=== PATIENT | female | born 1970 | race Caucasian/White ===

== ENCOUNTER → 2016-12-19 08:42 | Outpatient (CLI) | payer MEDICAID | LOC: D.MAMMO 08:42 | DX: N63 Unspecified lump in breast (principal) ==

== ENCOUNTER 2017-03-11 17:49 | Emergency (ER) | payer MEDICAID | END 2017-03-11 18:53 | disposition home or self-care (01) | LOC: D.ER 17:49 | DX: K02.9 Dental caries, unspecified (principal); K04.7 Periapical abscess without sinus; E11.9 Type 2 diabetes mellitus without complications; Z79.4 Long term (current) use of insulin; F17.200 Nicotine dependence, unspecified, uncomplicated ==

== ENCOUNTER 2017-06-18 19:04 | Emergency (ER) | payer MEDICAID | END 2017-06-18 21:10 | disposition home or self-care (01) | LOC: D.ER 19:04 | DX: H00.015 Hordeolum externum left lower eyelid (principal); K04.7 Periapical abscess without sinus; E11.9 Type 2 diabetes mellitus without complications; Z79.4 Long term (current) use of insulin; F17.200 Nicotine dependence, unspecified, uncomplicated ==

== ENCOUNTER 2018-01-29 09:17 | Emergency (ER) | payer SELFPAY ==
[~2018-01-29] VITALS: Ht 167.6 cm; Wt 52.3 kg
[2018-01-29 09:34] VITALS: Ht 167.6 cm; Wt 52.3 kg
[2018-01-29] MEDS ORDERED: ADVAIR HFA 230-12 GM INH (09:39)
[2018-01-29] MEDS ORDERED: NOVOLOG100 UNIT/1 SQ (09:39)
[2018-01-29] MEDS ORDERED: VENTOLIN HFA18 GM INH (09:39)
[2018-01-29] MEDS ORDERED: TOUJEO SOL300 UNIT/1 SC (09:39)
[2018-01-29] MEDS ORDERED: SINGULAIR10 MG PO (09:40)
[2018-01-29] MEDS ORDERED: PREVACID30 MG PO (09:41)
[2018-01-29] MEDS ORDERED: DIFLUCAN150 MG PO (13:23)
[2018-01-29] MEDS ORDERED: CLEOCIN HCL300 MG PO (13:23)
[2018-01-29 14:15] VITALS: BP 100/74
== END 2018-01-29 14:15 | disposition home or self-care (01) ==
LOC: D.ER 09:17
DX: L02.411 Cutaneous abscess of right axilla (principal); L03.111 Cellulitis of right axilla; E11.9 Type 2 diabetes mellitus without complications; K21.9 Gastro-esophageal reflux disease without esophagitis

== ENCOUNTER 2018-08-25 13:06 | Inpatient (IN) | payer MEDICAID ==
[~2018-08-25] VITALS: Ht 167.6 cm; Wt 50.9 kg
[~2018-08-25 13:06] MED LIST: ADVAIR HFA 230-12 GM INH; CLEOCIN HCL300 MG PO; DIFLUCAN150 MG PO; NOVOLOG100 UNIT/1 SQ; PREVACID30 MG PO; SINGULAIR10 MG PO; TOUJEO SOL300 UNIT/1 SC; VENTOLIN HFA18 GM INH
[2018-08-25 13:47] LABS: BASOPHILS 0.7 % (0-2); EOSINOPHILS 8.1 % (0-7); HEMATOCRIT 43.5 % (36.0-48.0); IMMATURE GRANULOCYTES 0.4 % (0-5); LYMPHOCYTES 18.8 % (15-50); MCH 32.7 pg (26.0-34.0); MCHC 36.8 g/dL (31.0-37.0); MEAN PLATELET VOLUME 9.9 fL (7.4-10.4); MONOCYTES 5.7 % (2-11); NEUTROPHILS 66.3 % (40-80); PLATELET COUNT 233 10x3/uL (130-400); RBC 4.89 10x6/uL (4.00-5.40); RDW 12.2 % (11.5-14.5); WBC 9.1 10x3/uL (4.8-10.8)
[2018-08-25 14:16] LABS: APTT 23.7 SECONDS (22.8-39.4); INR 0.93 (0.85-1.17); PROTIME 11.9 SECONDS (11.6-15.0)
[2018-08-25 14:23] LABS: ALBUMIN 3.7 g/dL (3.4-5.0); ALKALINE PHOSPHATASE 57 U/L (46-116); ALT (SGPT) 32 U/L (10-68); BILIRUBIN - TOTAL 0.68 mg/dL (0.2-1.3); CALCIUM 9.2 mg/dL (8.5-10.1); CARBON DIOXIDE 25.2 mmol/L (21.0-32.0); CHLORIDE - SERUM 98 mmol/L (98-107); CKMB 1.3 U/L (0.0-3.6); CREATINE KINASE 41 UL (21-215); CREATININE - SERUM 0.9 mg/dL (0.6-1.3); POTASSIUM - SERUM 4.1 mmol/L (3.5-5.1); PRO BNP 44 pg/mL (0-125); PROTEIN - SERUM 6.8 g/dL (6.4-8.2); SODIUM 134 mmol/L (136-145); UREA NITROGEN 9 mg/dL (7-18); eGFR NON AFRICAN AMERICAN 71 mL/min (90-120)
[2018-08-25 14:24] LABS: CALC OSMOLALITY 287 mosm/kg (275-300); TROPONIN-I < 0.017 ng/mL (0.000-0.060)
[2018-08-25 14:25] LABS: GLUCOSE 485 mg/dL (74-106)
[2018-08-25 16:37] VITALS: BP 97/76; BMI 17.8
[2018-08-25 16:45] LABS: AMYLASE - SERUM 45 U/L (25-115); LIPASE 228 U/L (73-393)
--- NOTE | 2018-08-25 17:00 | NUR ---
BLOOD SUGAR 254. CALLED PHARMACY FOR INSULIN.
--- NOTE | 2018-08-25 18:15 | NUR ---
RESTING IN BED. DENIES PAIN. DENIES NEEDS.
[2018-08-25 20:00] VITALS: BP 103/63
--- NOTE | 2018-08-25 22:41 | NUR ---
PT WATCHING TV. RECEIVED MEDICATIONS PER MAR, TOLERATED WELL. CALL LIGHT IN REACH. WILL CONTINUE TO OBSERVE.
[2018-08-26 00:17] VITALS: BP 101/63
--- NOTE | 2018-08-26 01:23 | NUR ---
PT RESTING WITH EYES CLOSED AND CHEST RISING. NO S/S OF DISTRESS. CALL LIGHT IN REACH. WILL CONTINUE TO OBSERVE.
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
[2018-08-26] MEDS ORDERED: PROTONIX20 MG PO (07:43)
[2018-08-26 08:46] VITALS: BP 94/49
[2018-08-26 10:31] LABS: ANION GAP 15.4 mmol/L (8-16); CALCIUM 8.9 mg/dL (8.5-10.1); CARBON DIOXIDE 24.5 mmol/L (21.0-32.0); CREATININE - SERUM 0.9 mg/dL (0.6-1.3); POTASSIUM - SERUM 3.9 mmol/L (3.5-5.1)
[2018-08-26 10:32] LABS: BASOPHILS 0.1 % (0-2); EOSINOPHILS 0 % (0-7); HEMATOCRIT 39.6 % (36.0-48.0); HEMOGLOBIN 14.6 g/dL (12-16); IMMATURE GRANULOCYTES 0.4 % (0-5); LYMPHOCYTES 6.9 % (15-50); MCH 32.4 pg (26.0-34.0); MCHC 36.9 g/dL (31.0-37.0); MEAN PLATELET VOLUME 9.9 fL (7.4-10.4); MONOCYTES 4.4 % (2-11); NEUTROPHILS 88.2 % (40-80); PLATELET COUNT 228 10x3/uL (130-400); RDW 12.2 % (11.5-14.5)
[2018-08-26 10:41] LABS: WBC 16.6 10x3/uL (4.8-10.8)
[2018-08-26 11:56] VITALS: BP 94/60
--- NOTE | 2018-08-26 12:34 | MORECARE ---
CASE MANAGEMENT DISCHARGE SUMMARY PATIENT: JONATHAN SANCHEZ UNIT: [id number] ADM DATE: 08/25/18 AGE: 47 : 70 SEX: F ROOM/BED: D.1213 AUTHOR: DARIUSZ SAVAGE PHYSICIAN: REFERRING PHYSICIAN: ADRIANO MORALES MD DATE OF SERVICE: 08/26/18 Discharge Plan Patient Name: JONATHAN SANCHEZ Facility: [facility]:[place] : 1970 Planned Disposition: Anticipated Discharge Date: Discharge Date: Expected LOS: Initial Reviewer: [email or web address] Initial Review Date: 08/26/2018 Generated: 08/26/18 1:34 pm Patient Name: JONATHAN SANCHEZ Page [id number] at 1234 All edits/amendments must be made on the electronic document DICTATION DATE: 08/26/18 1233 PULP ROLLER: JOELLE 08/26/18 1233 RPT#: [id number] DC DATE: STATUS: ADM IN [facility] [address] [place] [address] END OF REPORT
[2018-08-26 12:39] VITALS: Ht 167.6 cm; Wt 50.9 kg
--- NOTE | 2018-08-26 12:41 | MORECARE ---
CASE MANAGEMENT DISCHARGE SUMMARY PATIENT: JONATHAN SANCHEZ UNIT: [id number] ADM DATE: 08/25/18 AGE: 47 : 70 SEX: F ROOM/BED: D.1213 AUTHOR: DARIUSZ SAVAGE PHYSICIAN: REFERRING PHYSICIAN: ADRIANO MORALES MD DATE OF SERVICE: 08/26/18 Discharge Plan Patient Name: JONATHAN SANCHEZ [facility] [facility] 1970 Planned Disposition: Anticipated Discharge Date: Discharge Date: Expected LOS: Initial Reviewer: [email or web address] Initial Review Date: 08/26/2018 Generated: 08/26/18 1:40 pm DCPIA - Discharge Planning Initial Assessment Updated by [email or web address]: Alice Mack on 08/26/18 12:35 pm * Is the patient Alert and Oriented? Yes * How many steps to enter\exit or inside your home? 3-4 * PCP MARTHA * Pharmacy [facility] * Preadmission Environment Home with Family * ADLs Independent * Equipment None * List name and contact numbers for known caregivers / representatives who currently or will assist patient after discharge: HAYLEY OR MAGAN JUSTIN [facility] [phone] * Verbal permission to speak to the caregivers and representatives has been obtained from the patient. N/A * Community resources currently utilized None * Additional services required to return to the preadmission environment? No * Can the patient safely return to the preadmission environment? Yes * Has this patient been hospitalized within the prior 30 days at any hospital? No Last DP export: 08/26/18 11:34 am Patient Name: JONATHAN SANCHEZ Page [id number] at 1241 All edits/amendments must be made on the electronic document DICTATION DATE: 08/26/18 124 ASSEMBLER DC FIELD YOKE: JOELLE 08/26/18 1240 RPT#: [id number] DC DATE: STATUS: ADM IN [facility] [address] [place] [address] END OF REPORT
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
[2018-08-26 13:02] LABS: APPEARANCE CLEAR (CLEAR); BILIRUBIN NEGATIVE (NEGATIVE); COLOR STRAW (YELLOW); GLUCOSE 1000 mg/dL (NEGATIVE); KETONE SMALL mg/dL (NEGATIVE); NITRITE NEGATIVE (NEGATIVE); PROTEIN NEGATIVE (NEGATIVE); SPECIFIC GRAVITY 1.015 (1.005-1.020); UROBILINOGEN NORMAL (NORMAL)
[2018-08-26 13:03] LABS: BACTERIA MANY /hpf (NONE SEEN); EPITHELIAL CELLS OCC /hpf (0-5)
[2018-08-26 13:04] LABS: WHITE CELLS - URINE OCC /hpf (0-5)
[2018-08-26 17:17] VITALS: BP 90/51
[2018-08-26 20:00] VITALS: BP 89/48
[2018-08-27 00:51] VITALS: BP 85/55
[2018-08-27 07:10] LABS: BASOPHILS 0 % (0-2); EOSINOPHILS 0 % (0-7); HEMATOCRIT 38.6 % (36.0-48.0); HEMOGLOBIN 13.6 g/dL (12-16); IMMATURE GRANULOCYTES 0.8 % (0-5); LYMPHOCYTES 6.8 % (15-50); MCH 31.8 pg (26.0-34.0); MCHC 35.2 g/dL (31.0-37.0); MEAN PLATELET VOLUME 9.7 fL (7.4-10.4); MONOCYTES 1.6 % (2-11); NEUTROPHILS 90.8 % (40-80); PLATELET COUNT 196 10x3/uL (130-400); RBC 4.28 10x6/uL (4.00-5.40); RDW 12.7 % (11.5-14.5)
--- NOTE | 2018-08-27 07:15 | NUR ---
INITIAL ROUNDING, PATIENT IS AWAKE, REPORTING A HEADACHE THAT HAS IMPROVED SINCE THE TYLENOL. SHE IS COLD, ROOM TEMP ADJUSTED AT THIS TIME. CALL VICK IN REACH
[2018-08-27 07:34] LABS: CALC OSMOLALITY 296 mosm/kg (275-300); CALCIUM 8.5 mg/dL (8.5-10.1); CARBON DIOXIDE 24.4 mmol/L (21.0-32.0); CHLORIDE - SERUM 103 mmol/L (98-107); CREATININE - SERUM 0.8 mg/dL (0.6-1.3); MAGNESIUM - SERUM 1.6 mg/dL (1.8-2.4); PHOSPHOROUS 4.4 mg/dL (2.5-4.9); POTASSIUM - SERUM 4.1 mmol/L (3.5-5.1); SODIUM 139 mmol/L (136-145); UREA NITROGEN 17 mg/dL (7-18); eGFR NON AFRICAN AMERICAN 81 mL/min (90-120)
[2018-08-27 07:35] LABS: GLUCOSE 403 mg/dL (74-106)
[2018-08-27 07:41] VITALS: BP 90/48
[2018-08-27 07:53] LABS: MCV 90.2 fL (80.0-100.0); WBC 10.5 10x3/uL (4.8-10.8)
[2018-08-27 11:21] VITALS: BP 112/63
--- NOTE | 2018-08-27 14:30 | NUR ---
IV SITE COVERED FOR THE PATIENT TO SHOWER AND WASH HER HAIR
[2018-08-27 15:34] VITALS: BP 118/60
[2018-08-27 20:04] VITALS: BP 106/68
--- NOTE | 2018-08-27 23:29 | NUR ---
ASSESSED AT THE BEGINNING OF THE SHIFT. PT IS ALERT AND ORIENTED, ABLE TO VERBALIZE NEEDS. PT DID HER OWN BLOOD SUGAR AND REQUESTED A SANDWICH, OUR MONITOR READ 228 BLOOD SUGAR AND SHE GAVE HER INSULIN SET UP. SHE IS DOING HER ON INJECTIONS. ALL MEDS WERE GIVEN AND SHE IS GETTING UP TO THE BATHROOM AD ALLYN. WILL CONTINUE TO MONITOR.
[2018-08-27 23:54] VITALS: BP 110/65
[2018-08-28 03:43] VITALS: BP 112/69
--- NOTE | 2018-08-28 07:05 | NUR ---
INITIAL ROUNDING ON THE PATIENT, SHE IS AWAKE AND WAITING ON BREAKFAST. SHE DENIES PAIN, AND IS NO LONGER ON OXYGEN. UP AD ALLYN, AND SHOWERED LAST NIGHT. CALL LIGHT IN REACH
[2018-08-28 07:12] LABS: BASOPHILS 0 % (0-2); EOSINOPHILS 0 % (0-7); HEMATOCRIT 38.8 % (36.0-48.0); HEMOGLOBIN 13.6 g/dL (12-16); IMMATURE GRANULOCYTES 1.3 % (0-5); LYMPHOCYTES 13.8 % (15-50); MCH 31.8 pg (26.0-34.0); MCHC 35.1 g/dL (31.0-37.0); MCV 90.7 fL (80.0-100.0); MEAN PLATELET VOLUME 9.9 fL (7.4-10.4); MONOCYTES 4.5 % (2-11); NEUTROPHILS 80.4 % (40-80); PLATELET COUNT 200 10x3/uL (130-400); RBC 4.28 10x6/uL (4.00-5.40); RDW 12.7 % (11.5-14.5); WBC 11.2 10x3/uL (4.8-10.8)
[2018-08-28 07:16] LABS: ANION GAP 14.8 mmol/L (8-16); CALCIUM 8.7 mg/dL (8.5-10.1); CARBON DIOXIDE 24.5 mmol/L (21.0-32.0); CREATININE - SERUM 0.9 mg/dL (0.6-1.3); MAGNESIUM - SERUM 1.9 mg/dL (1.8-2.4); PHOSPHOROUS 3.9 mg/dL (2.5-4.9); POTASSIUM - SERUM 4.3 mmol/L (3.5-5.1)
[2018-08-28 08:32] VITALS: BP 101/50
[2018-08-28 09:16] LABS: IMMUNOGLOBULIN A 153 mg/dL (87-352); IMMUNOGLOBULIN G 694 mg/dL (700-1600)
[2018-08-28] MEDS ORDERED: TESSALON PERLE100 MG PO (11:07)
[2018-08-28] MEDS ORDERED: MUCINEX DM ER1 EAC1 PO (11:21)
[2018-08-28] MEDS ORDERED: FLUTICASONE PRO16 GM NASAL (11:22)
[2018-08-28] MEDS ORDERED: LEVOFLOXACIN500 MG PO (11:27)
[2018-08-28] MEDS ORDERED: PREDNISONE10 MG PO (11:45)
--- NOTE | 2018-08-28 12:02 | NUR ---
Nutrition Follow Up: Chart reviewed Diet: ADA PO Intake: 100% meal avg Wt stable No BM since admit Labs reviewed - Glucose continues elevated Meds noted including Prednisone, Lantus, Humalog Rec continue current diet. RD following.
[2018-08-28 12:30] VITALS: BP 111/77
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
[2018-08-28] MEDS ORDERED: ALBUTEROL SULF8.5 GM INH (15:59)
[2018-08-28] MEDS ORDERED: FLOVENT HFA 11012 GM INH (16:00)
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
== END 2018-08-28 17:30 | disposition home or self-care (01) | DRG 189 ==
LOC: D.ER 13:06 → D.M3 15:55
PROVIDERS: Emergency Medicine; Internal Medicine Pulmonary Disease; ADMIT Internal Medicine Nephrology; ATTEND Internal Medicine Nephrology
DX: J96.01 Acute respiratory failure with hypoxia (principal); J45.901 Unspecified asthma with (acute) exacerbation; F17.213 Nicotine dependence, cigarettes, with withdrawal; E87.1 Hypo-osmolality and hyponatremia; J44.1 Chronic obstructive pulmonary disease with (acute) exacerbation; J44.0 Chronic obstructive pulmonary disease with (acute) lower respiratory infection; E11.65 Type 2 diabetes mellitus with hyperglycemia; K21.9 Gastro-esophageal reflux disease without esophagitis; J20.9 Acute bronchitis, unspecified; Z91.14 Patient's other noncompliance with medication regimen

== ENCOUNTER 2018-11-29 22:22 | Observation (INO) | payer MEDICAID ==
[~2018-11-29] VITALS: Ht 167.6 cm; Wt 55.5 kg
--- NOTE | ~2018-11-29 | HEMODYNAMI ---
PATIENT:JONATHAN SANCHEZ MEDICAL RECORD: [id number] : 70 LOCATION:[facility] D2130 ADMISSION DATE: 11/30/18 Generatedon:11/30/201816:21 Patient name: JONATHAN SANCHEZ Patient #: [id number] SSN: [id number] : 1970 Date of study: 11/30/2018 Page: Of Hemodynamic Procedure Report Patient Data Patient Demographics Procedure consent was obtained First Name: JONATHAN Gender: Female Last Name: LAURA : 1970 [facility] Initial: D Age: 48 year(s) Patient #: [id number] Race: SSN: [id number] Additional ID: [id number] Contact details Address: [address] State: [place] City: [place] Zip code: [address] Past Medical History Allergies Allergen Reaction Date Comments Reported Morphine 11/30/2018 Admission Admission Data Admission Date: 11/30/2018 Admission Time: 0:02 Arrival Date: 11/30/2018 Arrival Time: 0:00 Room #: D.2130 Insurance Payor: Private health insurance [facility] #: [id number] Height (in.): 65.75 BSA: 1.61 (m2) Height (cm.): 167 BMI: 19.72 (kg/m2) Weight (lbs.): 121.25 Weight (kg.): 55 Lab Results Lab Result Date: 11/30/2018 Lab Result Time: 0:00 Biochemistry Name Units Result Min Max BUN mg/dl 14 --(--*-)-- 7 18 Creatinine mg/dl 1 --(--*-)-- 0.6 1.3 CBC Name Units Result Min Max Hematocrit % 37.9 *-(----)-- 42 54 Hemoglobin g/dl 14.1 --(*---)-- 13.5 17.5 Procedure Procedure Types Cath Procedure Diagnostic Procedure [facility] w/Coronaries PCI Procedure Coronary Stent Coronary Stent Initial Procedure Description Procedure Date Procedure Date: 11/30/2018 Procedure Start Time: 16:06 Procedure End Time: 16:21 Procedure Staff Name Function Espinoza Sanders MD Performing Physician Marialuisa Snider RT Monitor Ema Benavidez RT Monitor Carmina Cowan RT Scrub Nhung Gaspar RN Nurse Procedure Data Cath Procedure Fluoroscopy Diagnostic fluoroscopy Total fluoroscopy Time: 2.4 time: 2.4 min min Diagnostic fluoroscopy Total fluoroscopy dose: 265 dose: 265 mGy mGy Contrast Material Contrast Material Type Amount (ml) Isovue 300 65 Entry Location Entry Primary Successful Side Size Upsize Upsize Entry Closure Chavez ccessful Closure Location (Fr) 1 (Fr) 2 (Fr) Remarks Device Remarks Radial Right 6 Fr Mechanical artery Short Compression Estimated blood loss: 10 ml Diagnostic catheters Device Type Used For End Catheter Placement DIAGNOSTIC Acton 110cm 5 Procedure Fr catheter ([id number]) Procedure Complications No complications Procedure Medications Medication Administration Route Dosage 0.9% NaCl I.V. 100 ml/hr Oxygen etCO2 Nasal cannula 2 l/min Lidocaine 2% added to field 20 Heparin Flush Bag added to field 2 bags (1000units/500ml NS) Radial Cocktail added to field 1 syringe (Verapamil 2mg/Nitro 400mcg/Heparin 1500units) Benadryl I.V. 25 mg Versed I.V. 2 mg Fentanyl I.V. 100 mcg Heparin Bolus I.V. 4000 units Integrilin (Bolus I.V. 5 ml 2mg/ml) Integrilin (Bolus wasted 5 ml 2mg/ml) Plavix P.O. 600 mg Hemodynamics Rest BSA: 1.61 (m2) HGB: 14.1 (g/dl) O2 Consumption: Estimated: 156.92 (ml/min) O2 Co nsumption indexed: Estimated:97.47 (ml/min/m) Heart Rate: 67 (bpm) Snapshots Pre Cath Intra NCS Post Cath Vital Signs Time Heart Resp SPO2 etCO2 NIBP Rhythm Pain Sedation Rate (ipm) (%) (mmHg) (mmHg) Status Level (bpm) 15:52:17 71 19 98 31 No Cuff NSR 0 (11) 10(A) , No pain 15:54:34 74 15 97 28.5 112/42(93) NSR 0 (11) 10(A) , No pain 15:58:42 79 14 100 33.7 113/79(96) NSR 0 (11) 10(A) , No pain 16:02:50 77 14 98 32.2 107/78(88) NSR 0 (11) 10(A) , No pain 16:06:58 75 10 99 40.4 103/76(95) NSR 0 (11) 10(A) , No pain 16:11:04 88 10 100 36.7 105/74(81) NSR 0 (11) 10(A) , No pain 16:15:10 87 17 98 21.7 93/68(77) NSR 0 (11) 10(A) , No pain 16:19:13 73 13 96 1.4 99/68(82) NSR 0 (11) 10(A) , No pain Medications Time Medication Route Dose Verified Delivered Reason Not es Effectiveness by by 16:04:15 0.9% NaCl I.V. 100 Espinoza Nhung used for ml/hr Tommy Gaspar family support coordinator 16:04:22 Oxygen etCO2 2 l/min Espinoza Nhung used for Nasal Tommy Gaspar procedure cannula RN 16:04:28 Lidocaine 2% added 20ml Espinoza Espinoza for local to vial Tommy Sanders MD anesthetic field 16:04:34 Heparin Flush added 2 bags Espinoza Espinoza used for Bag to Tommy Sanders MD procedure (1000units/500ml field NS) 16:04:39 Radial Cocktail added 1 Espinoza Espinoza used for (Verapamil to syringe Tommy Sanders MD procedure 2mg/Nitro field 400mcg/Heparin 1500units) 16:05:08 Benadryl I.V. 25 mg Espinoza Nhung used for Tommy Gaspar family support coordinator 16:05:14 Versed I.V. 2 mg Espinoza Nhung for sedation Tommy Gaspar RN 16:05:19 Fentanyl I.V. 100 mcg Espinoza Nhung for sedation Tommy Gaspar RN 16:12:43 Heparin Bolus I.V. 4000 Espinoza Nhung for karina ified units Tommy Gaspar anticoagulation with Dr. JOHN PAUL Cruz 16:12:59 Integrilin I.V. 5 ml Espinoza Nhung for (Bolus 2mg/ml) Tommy Gaspar antiplatelet RN therapy 16:13:16 Integrilin wasted 5 ml Espinoza Nhung for (Bolus 2mg/ml) Tommy Gaspar antiplatelet RN therapy 16:13:18 Plavix P.O. 600 mg Espinoza Hooker for Tommy Gaspar antiplatelet RN therapy Procedure Log Time Note 15:19:58 Nhung Gaspar RN sent for patient. Start room use. 15:20:15 Procedure Status Urgent Heart Cath (IP). 15::19 Time tracking: Regular hours (M-F 7:00 - 5:00) 15::29 Plan of Care:Hemodynamics will remain stable., Cardiac rhythm will remain stable., Comfort level will be maintained., Respiratory function will remain adequate., Patient/ family verbilizes understanding of procedure., Procedure tolerated without complication., Recovers from procedure without complications.. 15:24:02 Lab Result : Hemoglobin 14.1 g/dl 15:24: Lab Result : Creatinine 1 mg/dl 15:24: Lab Result : BUN 14 mg/dl 15:24: Lab Result : Hematocrit 37.9 % 15:24:20 Patient Height : 65.75 inches 15:24:24 Patient Weight : 121.25 lbs 15::29 Arrival Date: 11/30/2018 12:00:00 AM 15:25:34 Insurance Payor : Private health insurance 15:26:37 Informed consent obtained and on chart 15:30:49 Patient allergic to Morphine 15:50:36 Patient received from Med II to CCL 2 Alert and oriented. Tansferred to table in Supine position. 15:50:39 Warm blankets applied, and elva hugger turned on for patient comfort. 15:50:40 Correct patient and procedure confirmed by team. 15:50:41 ECG and BP/O2 sat monitors applied to patient. 15:50:45 Vital chart was started 15:50:55 Baseline sample Acquired. 15:51:02 Rhythm: sinus rhythm 15:51:05 Full Disclosure recording started 15:51:07 - 15:51:42 Pre-procedure instructions explained to patient. 15:51:43 Pre-op teaching completed and patient verbalized understanding. 15:51:48 Family unavailable. 15:51:53 Patient NPO since Midnight. 15:52:02 Is the patient allergic to Iodine/contrast media? No. 15:52:06 Is patient on blood thinner?No 15:52:12 Patient diabetic? Yes. 15:52:17 If diabetic: On Metformin? No 15:52:23 Patient not . Patient has had hysterectomy. 15:52:29 Snore? Yes 15:52:52 Airway obstruction? Yes copd/asthma 15:53:00 Sleep apnea? No 15:53:03 Deviated septum? No 15:53:06 Opens mouth fully? Yes 15:53:09 Sticks out tongue? Yes 15:53:24 Dentures? No ? 15:53:35 Previous problem with sedation/anesthesia? No ? 15:53:41 ----Pre-sedation anethsthesia assessment.---- 15:55:12 Patient pain scale 0/10 ?. 15:55:19 IV patent on arrival in left hand with 0.9% NaCl at O. 15:55:21 Lab results completed and on chart. 15:55:23 Right Radial & Right Groin area was prepped with chlora-prep and draped in sterile fashion 15:55:24 Alarms reviewed by R. N. 15:55:24 Sharps counted by scrub and verified by R.N. 15:57:56 Physician arrived 15:57:57 --------ALL STOP TIME OUT------ 15:57:58 Final Timeout: patient, procedure, and site verified with staff and physician. All members of the team are in agreement. 15:58:03 Right Radial & Right Groin site verified by team. 15:58:10 Fire Safety Assessment: A--An alcohol-based skin anteseptic being used preoperatively., C--Open oxygen or nitrous oxide is being used., D--An ESU, laser, or fiber-optic light is being used. 15:58:16 Physical assessment completed. ASA score P 2 - A patient with mild systemic disease as per Espinoza Sanders MD. 15:58:22 2) 60-89 Mildly reduced kidney function, and other findings (as for stage 1) point to kidney disease. 15:58:30 Maximum allowable contrast dose (3.7 X eGFR X 0.75)175 ml. 15:58:36 Sedation plan: IV Moderate Sedation Medication:Versed, Fentanyl 15:59:02 Use device set Radial Dx or PCI 15:59:06 ACIST Syringe (37263) opened to sterile field. 15:59:08 Medline Cath Pack ([id number]) opened to sterile field. 15:59:08 Bag Decanter (2002S) opened to sterile field. 15:59:09 ACIST Hand Control (43346) opened to sterile field. 15:59:10 ACIST Manifold (21652) opened to sterile field. 15:59:11 Tegaderm 4 x 4 (1626W) opened to sterile field. 15:59:13 MBrace Wrist Support (290066935) opened to sterile field. 15:59:16 EMERALD Guide Wire (025-864) opened to sterile field. 15:59:19 SHEATH 6FR RAIN (9975350) opened to sterile field. 16:01:50 Zero performed for pressure channel P1 16:04:15 0.9% NaCl 100 ml/hr I.V. was administered by Nhung Gaspar RN; used for procedure; 16:04:22 Oxygen 2 l/min etCO2 Nasal cannula was administered by Nhung Gaspar RN ; used for procedure; 16:04:28 Lidocaine 2% 20ml vial added to field was administered by Espinoza Sanders MD; for local anesthetic; 16:04:34 Heparin Flush Bag (1000units/500ml NS) 2 bags added to field was administered by Espinoza Sanders MD; used for procedure; 16:04:39 Radial Cocktail (Verapamil 2mg/Nitro 400mcg/Heparin 1500units) 1 syring e added to field was administered by Espinoza Sanders MD; used for procedure; 16:05:08 Benadryl 25 mg I.V. was administered by Nhung Gaspar RN; used for procedure; 16:05:14 Versed 2 mg I.V. was administered by Nhung Gaspar RN; for sedation; 16:05:19 Fentanyl 100 mcg I.V. was administered by Nhung Gaspar RN; for sedation; 16:06:20 Procedure started. 16:06:32 Local anesthetic to right radial artery with Lidocaine 2% by Espinoza Sanders MD.INITIAL ACCESS ONLY 16:07:38 A 6 Fr Short sheath was inserted into the Right Radial artery 16:08:10 A DIAGNOSTIC Acton 110cm 5 Fr catheter (272680) was advanced over the wire and used for Procedure. 16:09:08 LV gram done using BECKWITH 16:09:19 Injector settings: Ml/sec: 5, Volume: 15, 16:09:31 EF : 55 % 16:09:36 LCA angiography performed. 16:10:25 RCA angiography performed. 16:10:32 Catheter exchanged over wire. 16:11:14 INFLATOR Merit BasixCompak (QC9698) opened to sterile field. 16:11:23 CHOICE PT Extra Support 182cm wire ([id number]) opened to sterile field. 16:12:42 GUIDE 6FR XBLAD 3.5 catheter (89571395) opened to sterile field. 16:12:43 Heparin Bolus 4000 units I.V. was administered by Nhung Gaspar RN; for anticoagulation; verified with Dr. Sanders 16:12:57 6 Fr XBLAD 3.5 guide catheter was inserted over the wire 16:12:59 Integrilin (Bolus 2mg/ml) 5 ml I.V. was administered by Nhung Gaspar RN; for antiplatelet therapy; 16:13:09 CHOICE ES 182 wire advanced. 16:13:12 Pre PCI Site: [place] mCirc has 85% stenosis. 16:13:13 Wire advanced across lesion. 16:13:16 Integrilin (Bolus 2mg/ml) 5 ml wasted was administered by Nhung Gaspar RN; for antiplatelet therapy; 16:13:18 Plavix 600 mg P.O. was administered by Nhung Gaspar RN; for antiplatelet therapy; 16:14:38 Place stent Inflation Number: 1 A COBRA RX 3.0 X 18 Stent was prepped and advanced across the Mid CX . The stent was deployed at 13 WERO for 0:00 (min:sec) . 16:14:50 Stent catheter was removed intact over wire. 16:14:51 Wire removed. 16:14:52 Guide catheter removed. 16:15:03 Procedure ended.(Physican Out) 16:16:20 ZEPHYR REGULAR TR BAND (952938) opened to sterile field. 16:16:54 Sheath removed intact; hemostasis achieved with Mechanical Compression to the Right Radial artery. 16:17:05 Fluoroscopy time 02.40 minutes. 16:17:12 Fluoroscopy dose: 265 mGy 16:17:12 Flurop Dose total: 265 16:17:27 Dose Area Product 29929 mGy/cm. 16:17:36 Contrast amount:Isovue 300 65ml. 16:17:40 Maximum allowable dose exceeded? No. 16:17:49 [place] band inflated with 11cc of air. 16:17:53 Insertion/operative site no bleeding no hematoma. 16:18:10 Post-procedure physical assessment completed. ASA score P 2 - A patient with mild systemic disease as per Espinoza Sanders MD. 16:18:16 Post procedure rhythm: unchanged. 16:18:23 Estimated blood loss: 10 ml 16:18:26 Post procedure instruction explained to patient.Patient verbalizes understanding. 16:18:27 Patient needs reinforcement of post procedure teaching. 16:19:38 Procedure type changed to Cath procedure, Diagnostic procedure, LHC, LH C w/Coronaries, PCI procedure, Coronary Stent, Coronary Stent Initial 16:20:20 Procedure and supply charges have been captured, reviewed, submitted an d are correct. 16:20:30 Procedure Complication : No complications 16:20:34 Vital chart was stopped 16:20:36 See physician's report for complete and final results. 16:20:40 Report given to PCU. 16:20:59 Patient transfered to PCU with Bed. 16:21:02 Procedure ended. 16:21:02 Full Disclosure recording stopped 16:21:08 End room use (Document Last) Intervention Summary Intervention Notes Time ActionType Lesion and Equipment Action# Pressure Duration Attributes Used 16:14:38 Place stent Mid CX COBRA RX 1 13 00:00 3.0 X 18 Stent Device Usage Item Name Manufacture Quantity Catalog Number Hospital Part Current Minimal Lot# / Charge Number Stock Stock Serial# Code ACIST Syringe Acist 1 00994 886052 580158 650109 20 (12382) Medical Systems Inc Medline Cath Medline 1 [id number] 767806 57442 581909 5 Pack ([id number]) Bag Decanter Microtek 1 642292 54571 811485 5 () Medical Inc. ACIST Hand Acist 1 97692 532465 404848 640755 5 Control Medical (60615) Systems Inc ACIST Manifold Acist 1 82246 358789 840196 341334 5 (05409) Medical Systems Inc Tegaderm 4 x 4 3M 1 1626W 282337 952490 786908 5 (1626W) MBrace Wrist Advanced 1 140-0250-00 743697 68097 349578 5 Support Vascular (689689109) Dynamics EMERALD Guide Cardinal 1 502-455 297306 852670 922495 5 Wire (502455) Health SHEATH 6FR Cardinal 1 9344690 574446 4334210 301080 5 RAIN (9212124) Health DIAGNOSTIC Terumo 1 40-5013 148570 254657 758090 5 Acton 110cm 5 Fr catheter (446052) INFLATOR Merit Merit 1 FL0579 372473 625318 349809 15 BioActorkyEllo, Inc. Medical (LG4893) CHOICE PT [place] 1 [id number] 130925 333791 297696 5 Extra Support Scientific 182cm wire ([id number]) GUIDE 6FR Cardinal 1 14466298 045303 784827 649554 10 XBLAD 3.5 Health catheter (68873385) COBRA RX 3.0 X Celonova 1 274-53-92803 066900 775745036 9164199 9 0 [id number] 18 stent Biosciences (873-61-71969) ZEPHYR REGULAR Cardinal 1 681356 585160 2578505 587344 5 TR BAND Soft Tissue Regeneration (947148) Signature Audit [place] Stage Time Signature Unsigned Intra-Procedure 11/30/2018 Ema 4:21:32 PM Reema RT(R) (CV) Signatures Performing Physician : Signature : Espinoza Sanders MD Date : Time : Monitor : Marialuisa Snider Signature : RT Date : Time : Monitor : Ema Signature : Reema RT Date : Time : Nurse : Nhung Gaspar RN Signature : Date : Time : [address] [place] [address]
[~2018-11-29 22:22] MED LIST changes: +ALBUTEROL SULF8.5 GM INH; +FLOVENT HFA 11012 GM INH; +FLUTICASONE PRO16 GM NASAL; +LEVOFLOXACIN500 MG PO; +MUCINEX DM ER1 EAC1 PO; +PREDNISONE10 MG PO; +PROTONIX20 MG PO; +TESSALON PERLE100 MG PO
[2018-11-29] MEDS ORDERED: LANTUS SOL100 UNIT/1 SC (22:29)
[2018-11-29 23:07] LABS: BASOPHILS 0.7 % (0-2); EOSINOPHILS 4.8 % (0-7); HEMATOCRIT 37.9 % (36.0-48.0); HEMOGLOBIN 14.1 g/dL (12-16); IMMATURE GRANULOCYTES 0.1 % (0-5); LYMPHOCYTES 38.4 % (15-50); MCH 32.7 pg (26.0-34.0); MCHC 37.2 g/dL (31.0-37.0); MCV 87.9 fL (80.0-100.0); MEAN PLATELET VOLUME 9.7 fL (7.4-10.4); PLATELET COUNT 214 10x3/uL (130-400); RBC 4.31 10x6/uL (4.00-5.40); RDW 11.8 % (11.5-14.5); WBC 7.4 10x3/uL (4.8-10.8)
[2018-11-29 23:17] LABS: APTT 24.6 SECONDS (22.8-39.4); INR 0.86 (0.85-1.17); PROTIME 11.2 SECONDS (11.6-15.0)
[2018-11-29 23:20] LABS: ALBUMIN 3.2 g/dL (3.4-5.0); ALKALINE PHOSPHATASE 49 U/L (46-116); ALT (SGPT) 20 U/L (10-68); BILIRUBIN - TOTAL 0.59 mg/dL (0.2-1.3); CALC OSMOLALITY 292 mosm/kg (275-300); CALCIUM 8.3 mg/dL (8.5-10.1); CARBON DIOXIDE 29.6 mmol/L (21.0-32.0); CHLORIDE - SERUM 102 mmol/L (98-107); GLUCOSE 340 mg/dL (74-106); POTASSIUM - SERUM 3.3 mmol/L (3.5-5.1); PROTEIN - SERUM 6.1 g/dL (6.4-8.2); SODIUM 140 mmol/L (136-145); UREA NITROGEN 14 mg/dL (7-18); eGFR NON AFRICAN AMERICAN 63 mL/min (90-120)
[2018-11-29 23:39] LABS: CKMB 0.5 U/L (0.0-3.6); CREATINE KINASE 37 UL (21-215); MAGNESIUM - SERUM 1.8 mg/dL (1.8-2.4); TROPONIN-I < 0.017 ng/mL (0.000-0.060)
[2018-11-29 23:50] VITALS: BP 126/65
--- NOTE | 2018-11-29 23:54 | NUR ---
pt reports arm pain prior to nitro 05/03 bp 126/65 hr 89
[2018-11-30] VITALS (7 sets, daily range): BP systolic 96–105; BP diastolic 51–66; Ht 167.6 cm; Wt 55.5 kg
--- NOTE | 2018-11-30 01:21 | NUR ---
ADMISSION ASSESSMENT, HISTORY AND HOME MED LIST COMPLETED. NORCO 5/325 PO GIVEN FOR C/O L ARM PAIN. IV TO L HAND SL. LUNGS CTA. SR PER CM HR 78. VSS. ALERT AND ORIENTED TO PERSON, PLACE AND TIME. TERRY. SR UP X2, CALL [facility] WITHIN REACH.
--- NOTE | 2018-11-30 02:21 | NUR ---
PT STATES ARM PAIN IS NOW /. PT CONVERSING ON CELL PHONE. CALL LIGHT WITHIN REACH.
--- NOTE | 2018-11-30 05:44 | NUR ---
PT RESITNG WITH EYES CLOSED. RESP EVEN AND REGULAR. SR UP X2, CALL LIGHT WITHIN REACH.
--- NOTE | 2018-11-30 05:50 | NUR ---
I have reviewed this patient and I concur with the Shift Assessment completed by the Licensed Practical Nurse today this shift.
--- NOTE | 2018-11-30 15:58 | NUR ---
TO DENTAL LABORATORY WORKER VIA BED
--- NOTE | 2018-11-30 16:45 | NUR ---
RETURNED TO ROOM VIA BED. TR BAND ON AND INFLATED WITH NO BLEEDING NOTED AT SITE. PULSES PALP IN RIGHT WRIST. NAILBEDS TOMER WELL. C/O NAUSEA AND MEDICATED WITH ZOFRAN ORDERED. PT INSTRUCTED ABOUT BEDREST FOR 4 HOURS AND VERBALIZES UNDERSTANDING. IV PATENT TO LEFT HAND WITHOUT REDNESS OR EDEMA.
[2018-11-30] MEDS ORDERED: PLAVIX75 MG PO (19:02)
--- NOTE | 2018-11-30 19:05 | NUR ---
EXAMINED PT PT CO PAIN ALL OVER PT IS KICKING AND MOVING AROUND IN BED EXAM OF RT WRIST EDEMA ABOVE SIGHT I FINISHED REMOVING FEM STOP DEVICE AND APLIED PRESSURE DRSG LCTA AND SKIN WARM AND DRY
--- NOTE | 2018-11-30 19:22 | NUR ---
WANTING TO GET UP TO BATHROOM AND REMINDED HER OF ORDERS FOR BEDREST. STATES SHE NEEDS TO HAVE DIARRHEA STOOL AND REFUSES TO USE BEDPAN. TR BAND IN PLACE WITH SOME SWELLING AND C/O PAIN ABOVE THE BAND. REMOVED VERY SMALL AMT OF AIR WITH NO BLEEDING NOTED. NAILBEDS TOMER WELL AND PULSES PALPABLE.
--- NOTE | 2018-11-30 19:33 | NUR ---
ALLOWED PT UP TO AMBULATE IN ROOM WITH OBSERVACE TOLERATED WELL
--- NOTE | 2018-11-30 20:27 | NUR ---
PT STATES PAIN IS GREATLY RELIEVED DRSG TI WRIST IS DRY AND INTACT
--- NOTE | 2018-11-30 21:26 | NUR ---
PT DOING WELL DENIES PAIN EDEMA DOWN IN RIGHT ARMA AND PULSES ARE INTACT WITH NO BLEEDING FROM DRSG DCED IV WITH CATH INTACT AND DCED VIA WC TO PRIVATE AUTO
--- NOTE | 2018-12-01 08:01 | MORECARE ---
CASE MANAGEMENT DISCHARGE SUMMARY PATIENT: JONATHAN SANCHEZ UNIT: [id number] ADM DATE: 11/30/18 AGE: 48 : [birth year] SEX: F ROOM/BED: D.2130 AUTHOR: DARIUSZ SAVAGE PHYSICIAN: REFERRING PHYSICIAN: ADRIANO MORALES MD DATE OF SERVICE: 12/01/18 Discharge Plan Patient Name: JONATHAN SANCHEZ Facility: [facility]:[place] : 1970 Planned Disposition: Home Anticipated Discharge Date: 11/30/18 Discharge Date: 11/30/2018 Expected LOS: 1 Initial Reviewer: [email or web address] Initial Review Date: 12/01/2018 Generated: 12/01/18 9:01 am Patient Name: JONATHAN SANCHEZ Page [id number] at 0801 All edits/amendments must be made on the electronic document DICTATION DATE: 12/01/18 08 BIOLOGY RESEARCH ASSISTANT: JOELLE 12/01/18 08 RPT#: [id number] DC DATE:11/30/18 STATUS: DIS IN [facility] [address] [place] [place] [address] END OF REPORT
--- NOTE | 2018-12-02 14:32 | EC ---
PATIENT:JONATHAN SANCHEZ DATE OF SERVICE: 11/30/18 SEX: F MEDICAL RECORD: [id number] DATE OF : [birth year] LOCATION:D. D.213 AGE OF PATIENT: 48 ADMISSION DATE: 11/30/18 REFERRING PHYSICIAN: INTERPRETING PHYSICIAN: ERASMO SANDERS MD ECHOCARDIOGRAM REPORT ECHO CHARGES 4 ECHO COMPLETE Date: 11/30/18 CLINICAL DIAGNOSIS: HYPERTENSION ECHOCARDIOGRAPHIC MEASUREMENTS (adult normal given) AC root (d.<3.7cm) 3.1 cm LV Septum d (<1.2 cm> 0.6 cm Valve Excursion 1.7 cm LV Septum (systole) 0.7 cm Left Atria (s.<4.0cm> 2.9 cm LVPW d(<1.2cm) 0.9 cm RV (d.<2.3cm) 2.9 cm LVPW (sytole) 1.3 cm LV diastole(<5.6CM) 4.9 cm MV E-F(>70mm/sec) cm LV systole 3.7 cm LVOT Diameter 1.8 cm MV exc.(>10mm) cm Est.ejection fraction (50-75%) % DOPPLER: LVIT cm/sec A 54 cm/sec E 70 cm/sec LA cm/sec RVSP 18.8 mmHg LVOT 72 cm/sec AOP1/2T m/s Asc. Ao 113 cm/sec RVOT 52 cm/sec RA cm/sec PA 80 cm/sec AV Gradient Peak 5.1 mmHg AV Mean 3.5 mmHg AV Area 1.4 cm MV Gradient Peak 3.6 mmHg MV Mean 2.1 mmHg MV Area cm COMMENTS: Business Dean: Rolando [facility] Hotel Services Supervisor: 1 Dr. Sanders TAPE# PAVS Pericardial Effusion N DATE OF SERVICE: FINDINGS: 1. Left ventricular chamber size is within normal limits. Left ventricular systolic function is normal at 55%. 2. Left atrium, right atrium, and right ventricular chamber sizes are within normal limits. 3. Valvular structures have normal structure and motion. 4. Doppler interrogation reveals no significant valvular insufficiency or stenosis and pulmonary systolic pressure is normal estimated at 18 mmHg. ECHOCARDIOGRAM REPORT [id number] JONATHAN SANCHEZ 5. No evidence of pericardial effusion or left ventricular thrombus. TRANSINT:[id number] Voice Confirmation ID: [id number] DOCUMENT ID: [id number] ERASMO SANDERS MD at 1432 CC: [id number] DICTATION DATE: 11/30/18 1600 OPERATIONS INTELLIGENCE SUPERINTENDENT: 11/30/18 193 DIS IN 11/30/18 [facility] [address] [place] [address]
--- NOTE | 2018-12-02 14:32 | ST ---
PATIENT:JONATHAN SANCHEZ MEDICAL RECORD: [id number] SEX: F LOCATION:[address] ORDER #: ADMISSION DATE: 11/30/18 AGE OF PATIENT: 48 REFERRING PHYSICIAN: INTERPRETING PHYSICIAN: ERASMO VELAZQUEZ MD DATE OF SERVICE: 11/30/2018 Exercise Stress Test INDICATIONS: Chest pain. She was exercised 7 minutes 30 seconds achieving greater than 85% max target heart rate response with [address] depression at peak stress reproducibility of symptomatology with arm pain and jaw pain and chest pain. OVERALL IMPRESSION: Positive for inducible ischemia. TRANSINT:[id number] Voice Confirmation ID: [id number] DOCUMENT ID: [id number] ERASMO VELAZQUEZ MD at 1432 CC: [id number] DICTATION DATE: 11/30/18 1516 ENGINE REPAIRER: 12/01/18 0429 DIS IN 11/30/18 [place] [address] [place] [address]
--- NOTE | 2018-12-02 14:32 | OP ---
PATIENT NAME: JONATHAN SANCHEZ MEDICAL RECORD: [id number] :70 LOCATION:D.M2 D.2130 ADMISSION DATE:11/30/18 SURGEON: ERASMO VELAZQUEZ MD DATE OF OPERATION: 11/30/2018 PROCEDURES: 1. PTCA and stent to the left circumflex. 2. Left heart catheterization. 3. Selective coronary angiography. 4. Left ventriculogram. INDICATIONS: Unstable angina and coronary artery disease. PROCEDURE IN DETAIL: After informed consent was obtained and after a detailed description of the risks, benefits as well as alternative therapies, the patient elected to proceed with angiogram and angioplasty. The right radial area was prepped and draped in normal sterile fashion. Right radial artery was cannulated via modified Seldinger technique with placement of 6-Niuean sheath. All catheters exchanged through this sheath. FINDINGS: The left ventriculogram was performed in standard 30-degree BECKWITH view, reveals good cardiac wall motion throughout all segments. Overall ejection fraction estimated 60%. SELECTIVE CORONARY ANGIOGRAPHY: 1. Left main is with no significant angiographic disease. 2. Left anterior descending has moderate irregularities but no flow-limiting stenosis. 3. The left circumflex has 80% to 85% stenosis in the mid vessel. 4. Right coronary has moderate irregularities but no flow-limiting stenosis. PTCA AND STENT OF THE LEFT CIRCUMFLEX: The stent used was a 3.0 x 18 mm Cobra. Result was 0% residual stenosis. OVERALL IMPRESSION: Successful percutaneous transluminal angioplasty stent of the left circumflex going from 80% to 85% initial stenosis to 0% residual. TRANSINT:[id number] Voice Confirmation ID: [id number] DOCUMENT ID: [id number] ERASMO VELAZQUEZ MD at 1432 CC: [id number] DICTATION DATE: 11/30/18 1618 INDUSTRIAL SEWER: 11/30/18 2107 DIS IN 11/30/18 [place] [address] [place] [id number]
--- NOTE | 2018-12-02 14:32 | PN ---
PATIENT:JONATHAN AGUIRRE MEDICAL RECORD: [id number] LOCATION:[address] ADMISSION DATE: 11/30/18 PROGRESS NOTE DATE OF SERVICE: 11/30/2018 DIAGNOSES: 1. Unstable angina. 2. Shortness of breath. 3. Smoking history. 4. Family history of coronary artery disease. 5. Insulin-dependent diabetes. SUBJECTIVE: Mrs. Aguirre presents with arm pain, jaw pain and chest pain, underwent stress testing which was abnormal with ST-T changes in stage I, suggestive of hemodynamically significant disease. I have discussed the stress test results with her. She has continued to have the arm pain and jaw pain. She is even having it now while we were discussing the results. With continued angina, multiple risk factors and abnormal stress test, we will proceed with coronary angiography. Further care depends upon the findings of the angiography. TRANSINT:[id number] Voice Confirmation ID: [id number] DOCUMENT ID: [id number] ERASMO VELAZQUEZ MD at 1432 CC: [id number] DICTATION DATE: 11/30/18 1327 KITCHENHAND: 11/30/18 1402 DIS IN 11/30/18 [place] [id number] [place] [id number]
== END 2018-11-30 21:30 | disposition home or self-care (01) ==
LOC: D.ER 22:22 → D.M2 11-30 00:02 → OBSVTIME 11-30 00:02 → D.M2 11-30 00:02
PROVIDERS: Family Medicine; ADMIT Internal Medicine Nephrology; ATTEND Internal Medicine Nephrology
DX: I25.110 Atherosclerotic heart disease of native coronary artery with unstable angina pectoris (principal); E87.6 Hypokalemia; E11.9 Type 2 diabetes mellitus without complications; I10 Essential (primary) hypertension; K21.9 Gastro-esophageal reflux disease without esophagitis; F17.213 Nicotine dependence, cigarettes, with withdrawal; J45.909 Unspecified asthma, uncomplicated

== ENCOUNTER → 2019-02-04 13:42 | Outpatient (CLI) | payer MEDICAID ==
[2018-11-30 09:05] VITALS: BMI 19.7
[~2019-02-04 13:42] MED LIST changes: +LANTUS SOL100 UNIT/1 SC; +PLAVIX75 MG PO
[2019-02-04 15:00] LABS: HEMATOCRIT 42.8 % (36.0-48.0); HEMOGLOBIN 15.6 g/dL (12-16); LYMPHOCYTES 33.4 % (15-50); MCH 32.4 pg (26.0-34.0); MCHC 36.4 g/dL (31.0-37.0); NEUTROPHILS 59.2 % (40-80); PLATELET COUNT 251 10x3/uL (130-400); RBC 4.81 10x6/uL (4.00-5.40); RDW 11.7 % (11.5-14.5); WBC 9.5 10x3/uL (4.8-10.8)
== END | disposition home or self-care (01) ==
LOC: D.LAB 13:00 → D.RT 14:00
PROVIDERS: ATTEND Internal Medicine Pulmonary Disease
DX: J45.909 Unspecified asthma, uncomplicated (principal)

== ENCOUNTER → 2019-04-08 11:33 | Emergency (ER) | payer OTHER ==
[~2019-04-08] VITALS: Ht 167.6 cm; Wt 56.8 kg
[2019-04-08 11:58] VITALS: BP 115/65; Ht 167.6 cm; Wt 56.8 kg
[2019-04-08 12:56] LABS: APPEARANCE CLEAR (CLEAR); COLOR YELLOW (YELLOW); NITRITE NEGATIVE (NEGATIVE); PROTEIN NEGATIVE (NEGATIVE); SPECIFIC GRAVITY 1.015 (1.005-1.020)
[2019-04-08 12:57] LABS: BILIRUBIN NEGATIVE (NEGATIVE); GLUCOSE 1000 mg/dL (NEGATIVE); KETONE MODERATE mg/dL (NEGATIVE); UROBILINOGEN NORMAL (NORMAL)
[2019-04-08 12:59] LABS: BACTERIA FEW /hpf (NEGATIVE); EPITHELIAL CELLS 0-5 /hpf (0-5); MUCUS <1+ /lpf (NONE SEEN); RED CELLS - URINE OCC /hpf (0-5); WHITE CELLS - URINE NSEEN /hpf (NEGATIVE)
[2019-04-08 13:15] LABS: BASOPHILS 0.6 % (0-2); EOSINOPHILS 0.9 % (0-7); HEMATOCRIT 45.2 % (36.0-48.0); HEMOGLOBIN 16.6 g/dL (12-16); IMMATURE GRANULOCYTES 0.3 % (0-5); LYMPHOCYTES 30.8 % (15-50); MCH 32.9 pg (26.0-34.0); MCHC 36.7 g/dL (31.0-37.0); MCV 89.5 fL (80.0-100.0); MEAN PLATELET VOLUME 9.4 fL (7.4-10.4); MONOCYTES 3.3 % (2-11); NEUTROPHILS 64.1 % (40-80); PLATELET COUNT 243 10x3/uL (130-400); RBC 5.05 10x6/uL (4.00-5.40); RDW 11.7 % (11.5-14.5); WBC 9.3 10x3/uL (4.8-10.8)
[2019-04-08 13:38] LABS: CALC OSMOLALITY 289 mosm/kg (275-300); CALCIUM 8.6 mg/dL (8.5-10.1); CARBON DIOXIDE 29.8 mmol/L (21.0-32.0); CHLORIDE - SERUM 101 mmol/L (98-107); CREATININE - SERUM 0.7 mg/dL (0.6-1.3); GLUCOSE 319 mg/dL (74-106); POTASSIUM - SERUM 4.3 mmol/L (3.5-5.1); SODIUM 139 mmol/L (136-145); UREA NITROGEN 13 mg/dL (7-18); eGFR NON AFRICAN AMERICAN > 90 mL/min (90-120)
[2019-04-08 13:44] LABS: ALBUMIN 3.8 g/dL (3.4-5.0); ALKALINE PHOSPHATASE 48 U/L (46-116); ALT (SGPT) 23 U/L (10-68); PROTEIN - SERUM 6.8 g/dL (6.4-8.2)
[2019-04-08 16:49] LABS: HCG URINE NEGATIVE (NEGATIVE)
== END | disposition home or self-care (01) ==
LOC: D.ER 11:33
PROVIDERS: Emergency Medicine
DX: R10.9 Unspecified abdominal pain (principal); N93.9 Abnormal uterine and vaginal bleeding, unspecified; E11.65 Type 2 diabetes mellitus with hyperglycemia; Z79.4 Long term (current) use of insulin

== ENCOUNTER 2019-08-16 08:38 | Emergency (ER) | payer OTHER ==
[~2019-08-16] VITALS: Ht 167.6 cm; Wt 52.3 kg
[2019-08-16 08:41] VITALS: Ht 167.6 cm; Wt 52.3 kg
[2019-08-16] MEDS ORDERED: NOVOLOG100 UNIT/1 SC (08:43)
[2019-08-16] MEDS ORDERED: ACETAMINOPHEN500 M1 PO (08:56)
[2019-08-16] MEDS ORDERED: IBUPROFEN800 MG PO (08:56)
[2019-08-16] MEDS ORDERED: KEFLEX500 MG PO (08:56)
[2019-08-16] MEDS ORDERED: DIFLUCAN150 MG PO (09:35)
[2019-08-16 09:36] VITALS: BP 109/76
== END 2019-08-16 09:36 | disposition home or self-care (01) ==
LOC: D.ER 08:38
DX: H66.92 Otitis media, unspecified, left ear (principal); E11.9 Type 2 diabetes mellitus without complications; J45.909 Unspecified asthma, uncomplicated; Z79.4 Long term (current) use of insulin; Z72.0 Tobacco use

== ENCOUNTER 2019-12-04 08:53 | Emergency (ER) | payer OTHER ==
[~2019-12-04] VITALS: Ht 167.6 cm; Wt 52.3 kg
[~2019-12-04 08:53] MED LIST changes: +ACETAMINOPHEN500 M1 PO; +IBUPROFEN800 MG PO; +KEFLEX500 MG PO; +NOVOLOG100 UNIT/1 SC
[2019-12-04 09:23] VITALS: Ht 167.6 cm; Wt 52.3 kg
[2019-12-04] MEDS ORDERED: DICLOFENAC SODI50 MG PO (10:15)
[2019-12-04] MEDS ORDERED: KEFLEX500 MG PO (10:15)
[2019-12-04] MEDS ORDERED: CLEOCIN HCL300 MG PO (10:15)
[2019-12-04] MEDS ORDERED: TYLENOL W/CODEI1 TAB PO (10:20)
[2019-12-04 10:39] VITALS: BP 132/64
== END 2019-12-04 10:39 | disposition home or self-care (01) ==
LOC: D.ER 08:53
DX: L73.2 Hidradenitis suppurativa (principal); L02.411 Cutaneous abscess of right axilla; J45.909 Unspecified asthma, uncomplicated; E11.9 Type 2 diabetes mellitus without complications; Z79.4 Long term (current) use of insulin